=== PATIENT | male | born 1945 ===

== ENCOUNTER → 2025-08-02 10:27 | Outpatient (CLI) | payer MEDICARE, OTHER, SELFPAY ==
[2025-08-02 19:26] LABS: Alanine Aminotransferase 21 IU/L (<50); Cholesterol 198 mg/dL (140-199); HDL Cholesterol 38 mg/dL (40-60); Triglycerides 166 mg/dL (35-150)
[2025-08-02 19:29] LABS: Hemoglobin A1C% w Est Avg Glu 6.4 % (4.0-6.0)
[2025-08-02 20:49] LABS: Folate 6.1 ng/mL (2.76-20.0); Vitamin B12 237 pg/mL (239-931)
== END ==
DX: E78.2 Mixed hyperlipidemia (principal); R20.2 Paresthesia of skin
CPT/HCPCS: 80061; 82607; 82746; 83036; 84450; 84460